=== PATIENT | male | born 1975 | race Caucasian/White ===

== ENCOUNTER 2024-03-23 06:34 | Day surgery (SDC) | payer OTHER ==
[~2024-03-23] VITALS: Ht 177.8 cm; Wt 106.3 kg
[~2024-03-23 06:34] MED LIST: Acetaminophen650 M1 PO; CELE100 PO; CO Q10100 MG PO; CeFAZolin Sodium 2,000 MG in NS 100 ML IV SCH; FLUOXETINE HCL20 M1 PO; GLUCHON PO; Lactated Ringer's 1,000 ML IV SCH; MELO7.5 PO; TRAZ100 PO; Vitamin C100 M1 PO; Vitamin D1000 UNI1 PO; ZINC15
[2024-03-23] MEDS ORDERED: CeFAZolin Sodium 2,000 MG VIAL ONE (06:36)
[2024-03-23 06:55] VITALS: BP 127/75
[2024-03-23] MEDS ORDERED: Dexamethasone Sod Phos 10 MG/ML 1ML VIAL ONE (06:58)
[2024-03-23] MEDS ORDERED: propofoL 40 ML IV ONE (06:58)
[2024-03-23] MEDS ORDERED: Glycopyrrolate 0.2 MG/ML 5ML VIAL ONE (06:58)
[2024-03-23] MEDS ORDERED: Ondansetron HCl 2 MG / ML 2ML Vial ONE (06:58)
[2024-03-23] MEDS ORDERED: Ketorolac Tromethamine 30mg Vial ONE (06:58)
[2024-03-23] MEDS ORDERED: Midazolam HCl 1MG / ML 2ML Vial ONE (06:59)
[2024-03-23] MEDS ORDERED: FentaNYL Citrate 50 MCG/ML 2 ML Injection ONE (06:59)
[2024-03-23] MEDS ORDERED: Bupivacaine 0.5% HCl 5 MG/ML 30MLVIAL ONE (07:02)
--- NOTE | 2024-03-23 07:05 | NUR ---
AFTER PATIENT WAS CLIPPED TO ABDOMINAL AREA, SOME CLIPPER ABRASIONS NOTED TO RIGHT SIDE OF ABDOMEN. INFORMED PATIENT. WILL NOTIFY OR NURSE.
--- NOTE | 2024-03-23 07:10 | NUR ---
Ambulatory in Day Surgery History, Chart, Medications and Allergies reviewed before start of procedure. Pre-Op teaching done. Pt verbalizes understanding. Patient States Post-Procedure ride home has been arranged.
[2024-03-23] MEDS ORDERED: ePHEDrine Sulfate 50 MG/ML 1ML Injection ONE (07:45)
[2024-03-23] MEDS ORDERED: HYDROcodone 5-APAP 325 TAB PO PRN (08:25)
[2024-03-23 08:35] VITALS: BP 102/74
[2024-03-23 08:40] VITALS: BP 112/73
[2024-03-23 08:45] VITALS: BP 104/69
[2024-03-23 08:57] VITALS: BP 124/60
[2024-03-23 09:14] VITALS: BP 113/51
--- NOTE | 2024-03-23 09:27 | NUR ---
Discharge instructions reviewed with patient. Patient verbalizes understanding. Copy given to patient to take home. Dressing c/d/i. Prescriptions placed in discharge folder. Patient States Post-Procedure ride home has been arranged. Discharged via wheelchair to private car for ride home.
== END 2024-03-23 09:30 | disposition home or self-care (01) ==
LOC: ORSCMMR 06:34 → ORD 07:30 → ORSCMMR 09:30
PROVIDERS: Surgery
PROC: 0WQF0ZZ Repair Abdominal Wall, Open Approach (ICD-10-PCS; principal; 2024-03-23 07:30)
DX: K42.9 Umbilical hernia without obstruction or gangrene (principal); G47.33 Obstructive sleep apnea (adult) (pediatric); E66.9 Obesity, unspecified; Z68.33 Body mass index [BMI] 33.0-33.9, adult; F32.A Depression, unspecified; F41.9 Anxiety disorder, unspecified; Z79.899 Other long term (current) drug therapy
CPT/HCPCS: J0690; J1100; J1885; J2250; J2405; J2704; J3010; J7120

== ENCOUNTER 2024-11-01 07:02 | Day surgery (SDC) | payer OTHER ==
[~2024-11-01] VITALS: Ht 177.8 cm; Wt 96.1 kg
[~2024-11-01 07:02] MED LIST changes: -CeFAZolin Sodium 2,000 MG in NS 100 ML IV SCH; -Lactated Ringer's 1,000 ML IV SCH
[2024-11-01 07:29] VITALS: BP 126/84
[2024-11-01] MEDS ORDERED: Albuterol 2.5 MG/3 ML VIAL INH PRN (07:55)
[2024-11-01] MEDS ORDERED: Ondansetron HCl 2 MG / ML 2ML Vial IV PRN (07:55)
--- NOTE | 2024-11-01 08:19 | NUR ---
11/01/24 0819 Russell Desouza MONITOR INTACT WITH CONTINUOUS PULSE OXIMETRY, CONTINUOUS END TITAL CO2, 3-LEAD EKG AND INTERMITTENT BLOOD PRESSURE. ANESTHESIA PER BIMAL FRONT END DEVELOPER J[employer] HTML [employer]
[2024-11-01 08:44] VITALS: BP 106/66
--- NOTE | 2024-11-01 08:45 | NUR ---
REPORT RECEIVED FROM TREVON SANCHEZ AND CLAIRE HUERTA. VSS. PT ON RA. PT RESTING QUIETLY WITH EYES CLOSED.
[2024-11-01 08:56] VITALS: BP 130/92
[2024-11-01 09:00] VITALS: BP 115/78
== END 2024-11-01 09:05 | disposition home or self-care (01) ==
LOC: ORSCMMR 07:02 → ORD 08:00 → ORSCMMR 08:00
PROVIDERS: Internal Medicine Gastroenterology
PROC: 0DBN8ZX Excision of Sigmoid Colon, Via Natural or Artificial Opening Endoscopic, Diagnostic (ICD-10-PCS; principal; 2024-11-01 08:00)
DX: Z12.11 Encounter for screening for malignant neoplasm of colon (principal); K63.5 Polyp of colon; K64.8 Other hemorrhoids; K57.30 Diverticulosis of large intestine without perforation or abscess without bleeding; G47.33 Obstructive sleep apnea (adult) (pediatric); F32.A Depression, unspecified; E66.9 Obesity, unspecified; Z68.30 Body mass index [BMI] 30.0-30.9, adult; Z79.899 Other long term (current) drug therapy
CPT/HCPCS: 88305; J2704; J7120